=== PATIENT | male | born 2000 | race Hispanic/Latino ===

== ENCOUNTER 2022-06-02 20:46 | Emergency (ER) | payer BC, OTHER ==
--- NOTE | 2022-06-02 22:08 | RAD REPORT ---
EXAM DESCRIPTION: RAD - Chest Single View - 06/02/2022 10:01 pm CLINICAL HISTORY: CHEST PAIN Chest pain. COMPARISON: No comparisons FINDINGS: Portable technique limits examination quality. Interstitial markings are mildly prominent. The heart is normal in size. No displaced fractures. IMPRESSION: Mild interstitial prominence suggesting viral infection.
[2022-06-02] MEDS ORDERED: ALBUTEROL 2.5 MG/3 ML NEB SOL ONE (22:38)
[2022-06-02] MEDS ORDERED: IPRATROPIUM BROM 0.5MG/2.5ML ONE (22:38)
--- NOTE | 2022-06-02 23:46 | ER ---
Nurse's Notes [facility] Name: Orlin Lucero Age: 22 yrs Sex: Male : 2000 Arrival Date: 06/02/2022 Time: 20:47 Bed 24 Private MD: Diagnosis: Acute bronchitis, unspecified Presentation: 06/02 21:03 Chief complaint: Patient states: Cough, congestion, coughing up phlegm X 1-2 weeks. ld1 Coronavirus screen: Client presents with at least one sign or symptom that may indicate coronavirus-19. Standard/surgical mask placed on the client. Ebola Screen: No symptoms or risks identified at this time. Initial Sepsis Screen: Does the patient meet any 2 criteria? No. Patient's initial sepsis screen is negative. Does the patient have a suspected source of infection? No. Patient's initial sepsis screen is negative. Risk Assessment: Do you want to hurt yourself or someone else? Patient reports no desire to harm self or others. Onset of symptoms was June 02, 2022. 21:03 Method Of Arrival: Ambulatory ld1 21:03 Acuity: MARY 4 ld1 Triage Assessment: 21:05 General: Appears in no apparent distress. uncomfortable, Behavior is calm, cooperative, ld1 appropriate for age. Pain: Denies pain. EENT: No signs and/or symptoms were reported regarding the EENT system. Neuro: Level of Consciousness is awake, alert, obeys commands, Oriented to person, place, time, situation. Cardiovascular: Capillary refill < 3 seconds Patient's skin is warm and dry. Respiratory: Reports cough that is Airway is patent Respiratory effort is even, unlabored, the patient has mild shortness of breath. GI: Abdomen is round non-distended. Historical: - Allergies: 21:05 No Known Allergies; ld1 - Home Meds: 21:05 None [Active]; ld1 - PMHx: 21:05 None; ld1 - PSHx: 21:05 None; ld1 - Immunization history:: Adult Immunizations up to date, Client reports receiving the 2nd dose of the Covid vaccine. - Social history:: Smoking status: Reported history of juuling and/or vaping. Patient/guardian denies using alcohol. Screenin:10 Abuse screen: Denies threats or abuse. Nutritional screening: No deficits noted. ke1 Tuberculosis screening: No symptoms or risk factors identified. Fall Risk None identified. Assessment: 23:10 Reassessment: Patient states feeling better. Patient states symptoms have improved. ke1 23:53 Reassessment: Patient states feeling better. ke1 Vital Signs: 21:03 BP 123 / 69; Pulse 104; Resp 18; Temp 98.4(TE); Pulse Ox 96% on R/A; Weight 113.4 kg; ld1 Height 5 ft. 10 in. (177.80 cm); Pain 0/10; 22:34 Pulse 89; Resp 19; Pulse Ox 99% on R/A; ke1 23:53 BP 120 / 67; Pulse 74; Resp 20; Pulse Ox 98% on R/A; ke1 21:03 Body Mass Index 35.87 (113.40 kg, 177.80 cm) ld1 ED Course: 20:47 Patient arrived in ED. ag3 20:49 Allison Swan FNP-C is [facility]. kb 20:49 Simon Ruth DO is Attending Physician. kb 21:04 Triage completed. ld1 21:05 Arm band placed on right wrist. ld1 21:07 Flu Sent. ld1 21:07 COVID-19 SARS RT PCR (Document "Date of Onset" if Symptomatic) Sent. ld1 21:58 Snehal Kline, ELLIS is Primary Nurse. ke1 22:03 XRAY Chest (1 view) In Process Unspecified. EDMS 23:10 Bed in low position. ke1 23:52 No provider procedures requiring assistance completed. Patient did not have IV access ke1 during this emergency room visit. Administered Medications: 22:35 Drug: Albuterol 2.5 mg Route: Inhalation; ke1 22:35 Drug: AtroVENT (ipratropium) Aerosol 0.5 mg Route: Inhalation; ke1 Medication: 23:52 VIS not applicable for this client. ke1 Outcome: 23:46 Discharge ordered by . kb 23:52 Discharged to home ambulatory. ke1 23:52 Condition: good 23:52 Discharge instructions given to patient. 23:54 Patient left the ED. ke1 Signatures: Dispatcher [employer] EDHI Allison Swan FNP-C FNP-Jazmyn Woodall ag3 Jami Kitchen RN RN ld1 Snehal Kline, RN RN ke1
--- NOTE | 2022-06-02 23:46 | EDPHYS ---
Physician Documentation [facility] Name: Orlin Lucero Age: 22 yrs Sex: Male : 2000 Arrival Date: 06/02/2022 Time: 20:47 Bed 24 Private MD: ED Physician Simon Ruth HPI: 06/03 00:08 This 22 yrs old Male presents to ER via Ambulatory with complaints of Cough. kb 00:08 The patient or guardian reports cough, that is intermittent, described as mild. Onset: kb The symptoms/episode began/occurred 2 week(s) ago. Severity of symptoms: At their worst the symptoms were moderate, in the emergency department the symptoms are unchanged. Modifying factors: The symptoms are alleviated by nothing, the symptoms are aggravated by nothing. Associated signs and symptoms: The patient has no apparent associated signs or symptoms. The patient has not experienced similar symptoms in the past. The patient has not recently seen a physician. Historical: - Allergies: 06/02 21:05 No Known Allergies; ld1 - Home Meds: 21:05 None [Active]; ld1 - PMHx: 21:05 None; ld1 - PSHx: 21:05 None; ld1 - Immunization history:: Adult Immunizations up to date, Client reports receiving the 2nd dose of the Covid vaccine. - Social history:: Smoking status: Reported history of juuling and/or vaping. Patient/guardian denies using alcohol. ROS: 06/03 00:07 Constitutional: Negative for fever, chills, and weight loss. kb Respiratory: Positive for cough, Negative for dyspnea on exertion, hemoptysis, orthopnea, pleurisy, shortness of breath, sputum production, wheezing. All other systems are negative. Exam: 00:07 Constitutional: This is a well developed, well nourished patient who is awake, alert, kb and in no acute distress. Head/Face: Normocephalic, atraumatic. ENT: Moist Mucous membranes Cardiovascular: Regular rate and rhythm with a normal S1 and S2. No gallops, murmurs, or rubs. No pulse deficits. Respiratory: Respirations even and unlabored. No increased work of breathing. Talking in full sentences Abdomen/GI: Soft, non-tender. No distention Skin: Warm, dry with normal turgor. Normal color. MS/ Extremity: Pulses equal, no cyanosis. Neurovascular intact. Full, normal range of motion. Neuro: Awake and alert, GCS 15, oriented to person, place, time, and situation. Moves all extremities. Normal gait. Psych: Awake, alert, with orientation to person, place and time. Behavior, mood, and affect are within normal limits. Vital Signs: 06/02 21:03 BP 123 / 69; Pulse 104; Resp 18; Temp 98.4(TE); Pulse Ox 96% on R/A; Weight 113.4 kg; ld1 Height 5 ft. 10 in. (177.80 cm); Pain 0/10; 22:34 Pulse 89; Resp 19; Pulse Ox 99% on R/A; ke1 23:53 BP 120 / 67; Pulse 74; Resp 20; Pulse Ox 98% on R/A; ke1 21:03 Body Mass Index 35.87 (113.40 kg, 177.80 cm) ld1 MDM: 21:04 Patient medically screened. chikis 06/03 00:07 Data reviewed: vital signs, nurses notes. Data interpreted: Pulse oximetry: on room air kb is 98 %. Interpretation: normal. Counseling: I had a detailed discussion with the patient and/or guardian regarding: the historical points, exam findings, and any diagnostic results supporting the discharge/admit diagnosis, lab results, radiology results, the need for outpatient follow up, a family practitioner, to return to the emergency department if symptoms worsen or persist or if there are any questions or concerns that arise at home. 00:08 ED course: Antibiotics given due to duration of symptoms and pt vapes. chikis 06/02 21:06 Order name: COVID-19 SARS RT PCR (Document "Date of Onset" if Symptomatic); Complete ld1 Time: 22:16 06/02 21:06 Order name: Flu; Complete Time: 22:16 ld1 06/02 21:06 Order name: XRAY Chest (1 view); Complete Time: 22:16 ld1 Administered Medications: 06/02 22:35 Drug: Albuterol 2.5 mg Route: Inhalation; ke1 22:35 Drug: AtroVENT (ipratropium) Aerosol 0.5 mg Route: Inhalation; ke1 Disposition: 06/03 08:24 Co-signature as Attending Physician, Simon Ruth DO I was immediately available onsite ms3 in the emergency department for consultation in the care of the patient. Disposition Summary: 06/02/22 23:46 Discharge Ordered Location: Home kb Condition: Stable kb Diagnosis - Acute bronchitis, unspecified kb Followup: kb - With: Private Physician - When: 2 - 3 days - Reason: Recheck today's complaints, Continuance of care, Re-evaluation by your physician Followup: kb - With: Emergency Department - When: As needed - Reason: Worsening of condition Discharge Instructions: - Discharge Summary Sheet kb - Acute Bronchitis, Adult, [id number] kb Forms: - Medication Reconciliation Form kb - Thank You Letter kb - Antibiotic Education kb - Prescription Opioid Use kb Prescriptions: - albuterol sulfate 90 mcg/actuation Inhalation HFA aerosol inhaler - inhale 2 puff by INHALATION route every 4-6 hours As needed; 1 puff; Refills: kb 0, Product Selection Permitted - Prednisone 20 mg Oral Tablet - take 1 tablet by ORAL route once daily for 5 days; 5 tablet; Refills: 0, kb Product Selection Permitted - Zithromax 500 mg Oral Tablet - take 1 tablet by ORAL route once daily for 5 days; 5 tablet; Refills: 0, kb Product Selection Permitted Signatures: Dispatcher [employer] EDAllison Landers, RING PACKER-C RING PACKER-Simon Jerome DO DO ms3 Jami Kitchen, RN RN ld1 Snehal Kline RN RN ke1
[2022-06-04 16:02] VITALS: TEMP 98.4
[2022-06-04 16:09] VITALS: BP 120/67; O2SAT 98
== END 2022-06-02 23:54 | disposition home or self-care (01) ==
LOC: ER 20:46
DX: J20.9 Acute bronchitis, unspecified (principal); Z20.822 Contact with and (suspected) exposure to COVID-19
CPT/HCPCS: 87804 ×2; 71045; 99284; U0003

== ENCOUNTER 2022-08-24 14:04 | Emergency (ER) | payer OTHER ==
--- NOTE | 2022-08-24 15:10 | RAD REPORT ---
EXAM DESCRIPTION: RAD - Elbow Left 3 View - 08/24/2022 3:01 pm CLINICAL HISTORY: PAIN COMPARISON: No comparisons FINDINGS/IMPRESSION: No acute fracture. No malalignment. No significant focal degenerative changes.
--- NOTE | 2022-08-24 15:25 | EDPHYS ---
Physician Documentation [facility] Name: Orlin Lucero Age: 22 yrs Sex: Male : 2000 Arrival Date: 08/24/2022 Time: 14:22 Bed 9 Private MD: ED Physician Shell Cadena HPI: 08/24 14:30 This 22 yrs old Male presents to ER via Ambulatory with complaints of Elbow jh7 Injury. 14:30 The patient or guardian complains of an abrasion, injury, pain, that is acute. The jh7 complaints affect the left elbow. Context: The problem was sustained at home, resulted from a fall, the patient slipped. Onset: The symptoms/episode began/occurred yesterday. Patient slipped and fell in the shower yesterday injuring left elbow. Denies any head injury or LOC. Reports that there is an abrasion on his elbow that he has bandaged.. Historical: - Allergies: 14:24 No Known Allergies; jl7 - Home Meds: 14:24 None [Active]; jl7 - PMHx: 14:24 None; jl7 - PSHx: 14:24 None; jl7 - Immunization history:: Client reports receiving the 2nd dose of the Covid vaccine. - Social history:: Smoking status: Patient denies any tobacco usage or history of. ROS: 14:30 Constitutional: Negative for fever, chills, and weight loss, Eyes: Negative for injury, jh7 pain, redness, and discharge, ENT: Negative for injury, pain, and discharge, Neck: Negative for injury, pain, and swelling, Cardiovascular: Negative for chest pain, palpitations, and edema, Respiratory: Negative for shortness of breath, cough, wheezing, and pleuritic chest pain, Skin: Negative for injury, rash, and discoloration, Neuro: Negative for headache, weakness, numbness, tingling, and seizure. 14:30 MS/extremity: Positive for abrasion, pain, swelling, tenderness, of the left elbow, Negative for decreased range of motion. 14:30 All other systems are negative. Exam: 14:30 Constitutional: This is a well developed, well nourished patient who is awake, alert, jh7 and in no acute distress. Head/Face: Normocephalic, atraumatic. Neck: Trachea midline, no thyromegaly or masses palpated, and no cervical lymphadenopathy. Supple, full range of motion without nuchal rigidity, or vertebral point tenderness. No Meningismus. Cardiovascular: Regular rate and rhythm with a normal S1 and S2. No gallops, murmurs, or rubs. Normal PMI, no JVD. No pulse deficits. Respiratory: Lungs have equal breath sounds bilaterally, clear to auscultation and percussion. No rales, rhonchi or wheezes noted. No increased work of breathing, no retractions or nasal flaring. Abdomen/GI: Soft, non-tender, with normal bowel sounds. No distension or tympany. No guarding or rebound. No evidence of tenderness throughout. 14:30 Neuro: Awake and alert, GCS 15, oriented to person, place, time, and situation. Motor strength 5/5 in all extremities. Sensory grossly intact. Normal gait. 14:30 Musculoskeletal/extremity: ROM: intact in all extremities, Circulation is intact in all extremities. Sensation intact. Mild diffuse swelling over the elbow with a 2 cm abrasion present over the olecranon. Full range of motion, neurovascularly intact. 14:30 Skin: injury, abrasion(s), moderate sized abrasion noted, of the left elbow. Vital Signs: 14:22 BP 136 / 78; Pulse 88; Resp 17; Temp 98.3; Pulse Ox 99% ; Weight 111.13 kg; Height 5 [facility] ft. 10 in. (177.80 cm); Pain 8/10; 14:54 BP 139 / 77; Pulse 81; Resp 18; Pulse Ox 100% on R/A; Pain 7/10; ld1 14:22 Body Mass Index 35.15 (111.13 kg, 177.80 cm) [facility] MDM: 14:24 Patient medically screened. [facility] 15:30 Differential diagnosis: closed fracture, contusion, abrasion, Sprain. Data reviewed: [facility] vital signs, nurses notes, radiologic studies, plain films. Data interpreted: Pulse oximetry: is 100 %. Interpretation: normal. Counseling: I had a detailed discussion with the patient and/or guardian regarding: the historical points, exam findings, and any diagnostic results supporting the discharge/admit diagnosis, to return to the emergency department if symptoms worsen or persist or if there are any questions or concerns that arise at home. 08/24 14:25 Order name: Elbow Left 3 View XRAY; Complete Time: 15:24 jh7 08/24 15:25 Order name: Sling; Complete Time: 15:34 jh7 Administered Medications: No medications were administered Disposition Summary: 08/24/22 15:24 Discharge Ordered Location: Home [facility] Problem: new [facility] Symptoms: are unchanged [facility] Condition: Stable [facility] Diagnosis - Other sprain of left elbow [facility] Followup: [facility] - With: Private Physician - When: 2 - 3 days - Reason: Recheck today's complaints Discharge Instructions: - Discharge Summary Sheet [facility] - How to Use a Sling [facility] - Elbow Sprain [facility] Forms: - Medication Reconciliation Form [facility] - Thank You Letter [facility] - Work release form 1 Signatures: Dispatcher [employer] Nyla Parker RN RN jl7 Mavis Nava, WOODWIND INSTRUMENT REPAIRER WOODWIND INSTRUMENT REPAIRER [facility]
--- NOTE | 2022-08-24 15:25 | ER ---
Nurse's Notes [facility] Name: Orlin Lucero Age: 22 yrs Sex: Male : 2000 Arrival Date: 08/24/2022 Time: 14:22 Bed 9 Private MD: Diagnosis: Other sprain of left elbow Presentation: 08/24 14:22 Chief complaint: Patient states: Slipped yesterday and hit LEFT elbow on side the side jl7 of the shower, reporting left elbow pain, reports abrasion to left elbow. Coronavirus screen: At this time, the client does not indicate any symptoms associated with coronavirus-19. Ebola Screen: No symptoms or risks identified at this time. Initial Sepsis Screen: Does the patient meet any 2 criteria? No. Patient's initial sepsis screen is negative. Does the patient have a suspected source of infection? No. Patient's initial sepsis screen is negative. Risk Assessment: Do you want to hurt yourself or someone else? Patient reports no desire to harm self or others. Onset of symptoms was August 23, 2022. 14:22 Method Of Arrival: Ambulatory [facility] 14:22 Acuity: MARY 4 jl7 Triage Assessment: 14:24 General: Appears in no apparent distress. uncomfortable, Behavior is calm, cooperative, jl7 appropriate for age. Pain: Complains of pain in left elbow Pain currently is 8 out of 10 on a pain scale. Musculoskeletal: Range of motion: intact in all extremities. Injury Description: Abrasion sustained to left elbow. Historical: - Allergies: 14:24 No Known Allergies; jl7 - Home Meds: 14:24 None [Active]; jl7 - PMHx: 14:24 None; jl7 - PSHx: 14:24 None; jl7 - Immunization history:: Client reports receiving the 2nd dose of the Covid vaccine. - Social history:: Smoking status: Patient denies any tobacco usage or history of. Screenin:54 Abuse screen: Denies threats or abuse. Denies injuries from another. Nutritional ld1 screening: No deficits noted. Tuberculosis screening: No symptoms or risk factors identified. Fall Risk No fall in past 12 months (0 pts). Assessment: 14:54 Reassessment: See triage assessment. General: Appears in no apparent distress. ld1 comfortable, Behavior is calm, cooperative, appropriate for age. Pain: Complains of pain in left arm and left elbow. Neuro: Level of Consciousness is awake, alert, obeys commands, Oriented to person, place, time, situation. Cardiovascular: Capillary refill < 3 seconds Patient's skin is warm and dry. Respiratory: Airway is patent Respiratory effort is even, unlabored. Vital Signs: 14:22 BP 136 / 78; Pulse 88; Resp 17; Temp 98.3; Pulse Ox 99% ; Weight 111.13 kg; Height 5 [facility] ft. 10 in. (177.80 cm); Pain 8/10; 14:54 BP 139 / 77; Pulse 81; Resp 18; Pulse Ox 100% on R/A; Pain 7/10; ld1 14:22 Body Mass Index 35.15 (111.13 kg, 177.80 cm) 7 ED Course: 14:22 Patient arrived in ED. [facility] 14:24 [facility]NP [facility] 14:24 Shell Cadena MD is Attending Physician. [facility] 14:24 Triage completed. [facility] 14:25 Arm band placed on right wrist. [facility] 14:54 Jami Kitchen, RN is Primary Nurse. ld1 14:54 Patient has correct armband on for positive identification. Placed in gown. Bed in low ld1 position. Call light in reach. Side rails up X2. Pulse ox on. NIBP on. Door closed. Noise minimized. Warm blanket given. 14:54 No provider procedures requiring assistance completed. Patient did not have IV access ld1 during this emergency room visit. 15:03 Elbow Left 3 View XRAY In Process Unspecified. EDMS Administered Medications: No medications were administered Medication: 14:54 VIS not applicable for this client. ld1 Outcome: 15:24 Discharge ordered by . [facility] 15:43 Discharged to home ambulatory. ld1 15:43 Condition: stable 15:43 Discharge instructions given to patient, Instructed on discharge instructions, follow up and referral plans. Demonstrated understanding of instructions, follow-up care. 15:43 Patient left the ED. ld1 Signatures: Dispatcher [employer] EDMS Nyla Gaston RN RN [facility] Jami Kitchen, ELLIS CORRAL 1 Mavis Nava FNP DRUPAL ARCHITECT [facility]
[2022-08-24 16:05] VITALS: TEMP 98.3
[2022-08-24 16:11] VITALS: BP 139/77; O2SAT 100
== END 2022-08-24 15:43 | disposition home or self-care (01) ==
LOC: ER 14:04
DX: S53.492A Other sprain of left elbow, initial encounter (principal)
CPT/HCPCS: 99283